=== PATIENT | female | born 1955 | race Caucasian/White ===

== ENCOUNTER 2018-07-08 02:45 | Emergency (ER) | payer BC ==
[2018-07-08 02:52] VITALS: BMI 34.7
[2018-07-08] MEDS ORDERED: ACETAMINOPHEN 500 MG TABLET (FP) ONE (02:55)
--- NOTE | 2018-07-08 02:59 | PDOC ---
History of Present Illness - General Chief Complaint: Pain, Acute Stated Complaint: HX OF ASTHMA/CHEST PAIN/HEAR TACING Time Seen by Provider: 07/08/18 02:55 History Source: Patient Exam Limitations: No Limitations - History of Present Illness Initial Comments: 07/08/18 02:55 This is a 62-year-old female comes in complaining of pleuritic-type chest pain. Patient says is worse when she takes deep breath worse when she moved and worse when she palpates the area. Patient had history of similar. Past she's related to her coughing and her asthma. Patient has a history of hypertension but does not take any medication for it is noted to have hypertension here in the emergency room. patient is somewhat obese but otherwise healthy. PAST MEDICAL HISTORY: no significant history PAST SURGICAL HISTORY: no significant history FAMILY HISTORY: no pertinant history SOCIAL HISTORY: Pt lives with family and is employed. MEDICATIONS: reviewed ALLERGIES: As per nursing notes ROS General: No fevers or chills, no weakness, no weight loss HEENT: No change in vision. No sore throat,. No ear pain CardioVascular: + chest pain , no shortness of breath Respiratory:No cough, or wheezing. Gastrointestinal: no nausea, vomiting, diarrhea or constipation, No rectal bleeding Genitourinary: No dysuria, hematuria, or frequency Musculoskeletal: . No joint pain or swelling Neurologic: No headache, vertigo, dizziness or loss of consciousness Psychiatric: nor depression Skin: No rashes or easy bruising Endocrine: no increased thirst or abnormal weight change Allergic: no skin or latex allergy All other systems reviewed and normal Exam: General: Well-nourished well-developed individual, no acute distress HEENT: Throat: Normal, tonsils normal, no erythema or exudate Neck: Supple, no meningeal signs, no lymphadenopathy Eyes::Pupils equal reactive and round, extraocular motion intact Chest: Pain reproduced on palpation Cardiac: S1-S2 normal, regular rate and rhythm, no murmurs rubs or gallops Respiratory: Lungs clear to auscultation bilateral Abdomen: Soft, nondistended, normal bowel sounds, there is no tenderness on palpation diffusely Extremities: Warm, dry, no cyanosis, clubbing, or edema Skin: No rashes Neuro: Alert and oriented x3, CN II - XII intact, nonfocal exam with normal strength, normal sensation, normal reflexes, normal gait, Psych: Normal mood and affect Assessment and plan: This is a 63y/o female with pleuritic chest pain. Pt had an ECG that was negative for any acute pathology. Pt troponin was not measurable, Pt heart score was 2. Pt discharged home and told to follow up with her PMD. Pt given tylenol for the pain with some improvement. Past History - Past Medical History Allergies/Adverse Reactions: Allergies Allergy/AdvReac Type Severity Reaction Status Date / Time codeine [Codeine] Allergy Severe Difficulty Verified 07/08/18 02:47 Breathing oxycodone [Oxycodone] Allergy Severe ANAPHYLAXIS Verified 07/08/18 02:47 strawberry [[place]] Allergy Unknown Verified 07/08/18 02:47 tomato [Tomato] Allergy Unknown Verified 07/08/18 02:47 pineapple Allergy Verified 07/08/18 02:47 Sulfa (Sulfonamide Allergy Hives Verified 07/08/18 02:47 Antibiotics) Home Medications: Ambulatory Orders Albuterol Sulfate Inhaler - [Ventolin Hfa Inhaler -] 2 inh PO Q6H 07/08/18 Anemia: No Asthma: Yes Cancer: No Cardiac Disorders: No CVA: No COPD: No CHF: No Dementia: No Diabetes: No GI Disorders: No Disorders: No HTN: Yes (TAKES NO MEDICATION) Hypercholesterolemia: No Liver Disease: No Seizures: No Thyroid Disease: No - Surgical History Abdominal Surgery: Yes (HEMORRHOIDECTOMY,Bilateral Laparoscopic Oopherectomy) Appendectomy: No Cardiac Surgery: No Cholecystectomy: No Lung Surgery: No Neurologic Surgery: No Orthopedic Surgery: Yes (FX RIGHT ANKLE PINNED) - Immunization History Immunization Up to Date: Yes - Suicide/Smoking/Psychosocial Hx Smoking Status: No Smoking History: Former smoker Years of Tobacco Use: 2 Have you smoked in the past 12 months: No Number of Cigarettes Smoked Daily: 0 If you are a former smoker, when did you quit?: 1988 Cigars Per Day: 0 Information on smoking cessation initiated: No Hx Alcohol Use: No Drug/Substance Use Hx: No Substance Use Type: Alcohol Hx Substance Use Treatment: No *Physical Exam - Vital Signs Last Vital Signs Temp Pulse Resp BP Pulse Ox 83 18 192/97 100 07/08/18 02:49 07/08/18 02:49 07/08/18 02:49 07/08/18 02:49 Heart Score/ECG Review - History History: Slightly suspicious - Electrocardiogram EKG: Normal - Age Age: 45-65 - Risk Factors Risk Factors Heart Score: Yes Hx Hypertension, Yes Hx Obesity Based on the list above the patient has:: 1-2 risk factors - Troponin Troponin: </= normal limit - Score Heart Score - Total: 2 *DC/Admit/Observation/Transfer Diagnosis at time of Disposition: Chest pain, pleuritic - Discharge Dispostion Disposition: HOME Condition at time of disposition: Stable Decision to Admit order: No - Referrals Referrals: oRlanda Singleton MD [Primary Care Provider] - - Patient Instructions Additional Instructions: Tylenol or Motrin as needed for pain Return to the emergency department immediately with ANY new, persistent or worsening symptoms. Continue any medications as previously prescribed by your physician. You should follow up with your primary doctor as soon as possible regarding today's emergency department visit. . Please make sure your doctor reviews the results of your emergency evaluation. Thank you for coming to the Emergency Department today for your care. It was a pleasure to see you today. Please note that your evaluation is INCOMPLETE until you follow-up with your doctor. - Post Discharge Activity
[2018-07-08] MEDS ORDERED: ACETAMINOPHEN 500 MG TABLET (FP) PO ONE (03:01)
[2018-07-08 03:29] VITALS: BP 124/74; PULSE 76
--- NOTE | 2018-07-08 11:19 | EKG ---
Test Reason : Blood Pressure : / mmHG Vent. Rate : 080 BPM Atrial Rate : 080 BPM P-R Int : 148 ms QRS Dur : 096 ms QT Int : 382 ms P-R-T Axes : 049 005 053 degrees QTc Int : 440 ms NORMAL SINUS RHYTHM INCOMPLETE RIGHT BUNDLE BRANCH BLOCK BORDERLINE ECG NO PREVIOUS ECGS AVAILABLE Confirmed by JOON AARON, STEFANI ([id number]) on 07/08/2018 11:19:00 AM Referred By: MD MURPHY Confirmed By:STEFANI DUPREE MD
== END 2018-07-08 03:58 | disposition home or self-care (01) ==
LOC: FER 02:45
DX: R07.89 Other chest pain (principal); I10 Essential (primary) hypertension; E66.9 Obesity, unspecified; Z87.891 Personal history of nicotine dependence
CPT/HCPCS: 36415; 82550; 84484; 93005; 99281-25

== ENCOUNTER 2019-06-04 19:24 | Emergency (ER) | payer BC ==
[2019-06-04 19:37] VITALS: BP 124/75; PULSE 83; TEMP 98.3; BMI 34.7
[2019-06-04] MEDS ORDERED: ACETAMINOPHEN 1000 MG/100 ML VIAL (NON FORMULARY) IVPB ONE (20:18)
[2019-06-04] MEDS ORDERED: ACETAMINOPHEN INJECTION 100 ML IVPB ONE (20:22)
[2019-06-04 20:55] LABS: BASO % 1.3 % (0-2.0); EOS % 0.4 % (0-4.5); HEMATOCRIT 41.7 % (32.4-45.2); HEMOGLOBIN 14.1 GM/dl (10.7-15.3); LYMPH % 16.6 % (8-40); MCH 33.4 pg (25.7-33.7); MCHC 33.9 g/dl (32.0-36.0); MEAN CELL VOLUME 98.6 fl (80-96); MEAN PLT VOLUME 8.9 fl (7.5-11.1); MONO % 4.5 % (3.8-10.2); NEUT % 77.2 % (42.8-82.8); PLATELET COUNT 330 K/MM3 (134-434); RBC 4.23 M/mm3 (3.60-5.2); RDW 12.5 % (11.6-15.6); WHITE BLOOD COUNT 11.7 K/mm3 (4.0-10.8)
[2019-06-04 21:02] LABS: INR 1.11 (0.82-1.09); PROTHROMBIN TIME (PATIENT) 12.4 SEC (10.2-13.0)
[2019-06-04 21:07] LABS: ALBUMIN 4.1 g/dl (3.4-5.0); BILIRUBIN,TOTAL 0.7 mg/dl (0.2-1); CALCIUM 9.1 mg/dl (8.5-10); CREATININE 0.8 mg/dl (0.55-1.3); POTASSIUM 4.1 mmol/L (3.5-5.1)
[2019-06-04] MEDS ORDERED: KETOROLAC TROMETHAMINE 30 MG/1 ML VIAL IVPUSH ONE (22:06)
[2019-06-04] MEDS ORDERED: KETOROLAC TROMETHAMINE 30 MG/1 ML VIAL ONE (22:07)
[2019-06-04] MEDS ORDERED: SODIUM CHLORIDE 1,000 ML IV STA (22:08)
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
--- NOTE | 2019-06-05 13:58 | EKG ---
Test Reason : Blood Pressure : / mmHG Vent. Rate : 079 BPM Atrial Rate : 079 BPM P-R Int : 134 ms QRS Dur : 088 ms QT Int : 374 ms P-R-T Axes : 047 006 053 degrees QTc Int : 428 ms NORMAL SINUS RHYTHM NORMAL ECG WHEN COMPARED WITH ECG OF 08-JUL-2018 02:52, NO SIGNIFICANT CHANGE WAS FOUND Confirmed by LEIA IRIZARRY MD ([id number]) on 06/05/2019 1:58:11 PM Referred By: MD YANEZ Confirmed By:LEIA IRIZARRY MD
== END 2019-06-05 01:26 | disposition home or self-care (01) ==
LOC: FER 19:24
PROC: 3E033NZ Introduction of Analgesics, Hypnotics, Sedatives into Peripheral Vein, Percutaneous Approach (ICD-10-PCS; principal; 2019-06-04)
PROC: 3E0337Z Introduction of Electrolytic and Water Balance Substance into Peripheral Vein, Percutaneous Approach (ICD-10-PCS; 2019-06-04)
DX: R07.89 Other chest pain (principal); E78.00 Pure hypercholesterolemia, unspecified; Z87.891 Personal history of nicotine dependence; I10 Essential (primary) hypertension; J45.909 Unspecified asthma, uncomplicated; F99 Mental disorder, not otherwise specified
CPT/HCPCS: 36415; 71045-TC-FY; 71275-TC; 80053; 82550; 84484; 85025; 85379; 85610; 93005; 99283-25; J0131; J7030

== ENCOUNTER 2019-12-25 07:41 | Emergency (ER) | payer OTHER, BC ==
--- NOTE | 2019-12-25 07:51 | PDOC ---
History of Present Illness - General Chief Complaint: Injury Stated Complaint: FELL WHILE WALKING DOG LANDED ON BUTTOCKS Time Seen by Provider: 12/25/19 07:47 History Source: Patient Exam Limitations: No Limitations - History of Present Illness Initial Comments: 12/25/19 07:49 64y F hx of slipped disk, asthma, depression, presents sp fall. Pt was walking her dog, and was pulled off balance by her dog and fell on her R buttock. Patient complains of a back pain that radiates up her spine without associated numbness/tingling/weaknsss, groin tingling/numbness, urianry or bowel incontinence. Therew as no head injury for LOC. Pt dneies pain elsewhere. Pt notse the pain today is a bit lower than hwere she has her typical back pain. exam: GENERAL: The patient is awake, alert, and fully oriented, Nontoxic - in no acute distress. HEAD: Normocephalic, atraumatic. BACK: Moderate tenderness in the midline approximately L3-L4, There is no crepitus, step-offs, ecchymosis, erythema, fluctuance, induration. EXTREMITIES: Normal range of motion, no edema. Normal range of motion including hip flex/exteions, knee flex/ext. Sensation intact distally Suspect possible back spasms versus fracture Will obtain lumbar spine x-ray will give the patient Toradol Tylenol Flexeril There is no signs of neurologic involvement including any red flags Past History - Past Medical History Allergies/Adverse Reactions: Allergies Allergy/AdvReac Type Severity Reaction Status Date / Time codeine [Codeine] Allergy Severe Difficulty Verified 12/25/19 07:43 Breathing oxycodone [Oxycodone] Allergy Severe ANAPHYLAXIS Verified 12/25/19 07:43 Sulfa (Sulfonamide Allergy Intermediate Hives Verified 12/25/19 07:43 Antibiotics) strawberry [[place]] Allergy Unknown Verified 12/25/19 07:43 tomato [Tomato] Allergy Unknown Verified 12/25/19 07:43 pineapple Allergy Verified 12/25/19 07:43 Home Medications: Ambulatory Orders Albuterol Sulfate Inhaler - [Ventolin Hfa Inhaler -] 2 inh PO Q6H PRN 07/08/18 Bupropion HCl [Wellbutrin Xl] 450 mg PO DAILY 06/04/19 Cholecalciferol (Vitamin D3) [Vitamin D3] 1,000 unit PO DAILY 06/04/19 Glucosam/Chond/Hyalu/Cf Borate [Move Free Joint Health Tablet] 1 each PO DAILY 06/04/19 Montelukast Sodium [Singulair] 10 mg PO HS 06/04/19 Multivitamin [One-Daily Multi-Vitamin] 1 each PO DAILY 06/04/19 Cyclobenzaprine HCl [Flexeril 10 mg] 10 mg PO BID PRN #14 tablet 12/25/19 Morphine Sulfate [Morphine Sulfate ER] 10 mg PO DAILY PRN #5 cap.er.pel MDD 1 Anemia: No Asthma: Yes Cancer: No Cardiac Disorders: No CVA: No COPD: No CHF: No Dementia: No Diabetes: No GI Disorders: No Disorders: Yes (FIBROIDS/POLYPS) HTN: Yes Hypercholesterolemia: Yes Liver Disease: No Psychiatric Problems: Yes Seizures: No Thyroid Disease: No - Surgical History Abdominal Surgery: Yes (HEMORRHOIDECTOMY,Bilateral Laparoscopic Oopherectomy) Appendectomy: No Cardiac Surgery: No Cholecystectomy: No Lung Surgery: No Neurologic Surgery: No Orthopedic Surgery: Yes (FX RIGHT ANKLE PINNED) - Immunization History Immunization Up to Date: Yes - Psycho Social/Smoking Cessation Hx Smoking Status: No Smoking History: Former smoker Years of Tobacco Use: 2 Have you smoked in the past 12 months: No Number of Cigarettes Smoked Daily: 0 If you are a former smoker, when did you quit?: 1988 Cigars Per Day: 0 Hx Alcohol Use: No Drug/Substance Use Hx: No Substance Use Type: Alcohol Hx Substance Use Treatment: No Medical Decision Making - Medical Decision Making 12/25/19 09:29 pt xray results reviewed, old thoracic compression fx (known to pt), and spinolytehsis of L5/S1 noted but no fx. pt feeling improved, anticipate dc with pmd/ortho fu return precuations were discussed Discharge - Discharge Information Problems reviewed: Yes Clinical Impression/Diagnosis: Lower back pain Qualifiers: Chronicity: acute Back pain laterality: midline Sciatica presence: without sciatica Qualified Code(s): M54.5 - Low back pain Spondylisthesis Qualifiers: Spinal region: lumbosacral Qualified Code(s): M43.17 - Spondylolisthesis, lumbosacral region Condition: Improved Disposition: HOME - Admission No - Additional Discharge Information Prescriptions: Cyclobenzaprine HCl [Flexeril 10 mg] 10 mg PO BID PRN #14 tablet PRN Reason: Back Pain Morphine Sulfate [Morphine Sulfate ER] 10 mg PO DAILY PRN #5 cap.er.pel MDD 1 PRN Reason: Pain - Follow up/Referral Referrals: Juan M Mccollum MD [Staff Physician] - - Patient Discharge Instructions Patient Printed Discharge Instructions: DI for Low Back Pain Additional Instructions: Return to the emergency department immediately with ANY new, persistent or worsening symptoms including numbness, tingling, weakness, fevers or any other concerns. Take ibuprofen (400mg)/tylenol(650mg) every 6 hours for 2 days. Take the flexeril twice daily if you still have pain/discomfort. Caution in using flexeril as it may make you sleepy. Do not drive or put yourself in any position where you would be in danger. If you have pain with the above medications you can take the morphine as needed however it may make you very drowsy Apply heat to your sore muscles. You MUST call and follow up with your doctor in 3-4 days for further evaluation of your symptoms. Your emergency department visit is not complete without a followup with your doctor for reevaluation.. Results were discussed with you. Please make sure your doctor reviews the results of your emergency evaluation. - Post Discharge Activity
[2019-12-25] MEDS ORDERED: KETOROLAC TROMETHAMINE 60 MG/2 ML VIAL IM ONE (07:52)
[2019-12-25] MEDS ORDERED: ACETAMINOPHEN 325 MG TABLET (FP) PO ONE (07:52)
[2019-12-25 07:56] VITALS: BP 156/93; PULSE 73; TEMP 97.8; BMI 33.3
[2019-12-25] MEDS ORDERED: CYCLOBENZAPRINE HCL 10 MG TABLET (FP) PO ONE (07:59)
[2019-12-25] MEDS ORDERED: ACETAMINOPHEN 325 MG TABLET (FP) ONE (08:11)
[2019-12-25] MEDS ORDERED: KETOROLAC TROMETHAMINE 60 MG/2 ML VIAL ONE (08:11)
[2019-12-25] MEDS ORDERED: CYCLOBENZAPRINE HCL 10 MG TABLET (FP) ONE (08:12)
== END 2019-12-25 10:19 | disposition home or self-care (01) ==
LOC: FER 07:41
PROC: 3E0233Z Introduction of Anti-inflammatory into Muscle, Percutaneous Approach (ICD-10-PCS; principal; 2019-12-25)
DX: M43.17 Spondylolisthesis, lumbosacral region (principal); Z88.6 Allergy status to analgesic agent; Z88.2 Allergy status to sulfonamides; Z87.891 Personal history of nicotine dependence; J45.909 Unspecified asthma, uncomplicated; I10 Essential (primary) hypertension; E78.00 Pure hypercholesterolemia, unspecified; F99 Mental disorder, not otherwise specified; D21.9 Benign neoplasm of connective and other soft tissue, unspecified
CPT/HCPCS: 72100-TC-FY; 96372; 99284-25

== ENCOUNTER 2021-12-01 21:45 | Emergency (ER) | payer OTHER, BC | END 2021-12-01 23:30 | disposition home or self-care (01) | LOC: FER 21:45 | DX: S22.32XA Fracture of one rib, left side, initial encounter for closed fracture (principal); S59.901A Unspecified injury of right elbow, initial encounter; S60.222A Contusion of left hand, initial encounter; W19.XXXA Unspecified fall, initial encounter; Y92.9 Unspecified place or not applicable | CPT/HCPCS: 71101-TC-LT-FY; 73070-TC-RT-FY; 73130-TC-LT-FY; 99283-25 ==

== ENCOUNTER 2023-04-04 10:03 | Day surgery (SDC) | payer OTHER, BC ==
[2023-04-02 12:35] VITALS: BMI 30.9
[2023-04-04] MEDS: PHENYLEPHRINE 2.5% OPTHALMIC DROP 2ML BOTTLE ONE ×3 (10:55→11:10)
[2023-04-04] MEDS: CYCLOPENTOLATE 2% OPHTH SOLN 2 ML BOTTLE ONE ×3 (10:55→11:10)
[2023-04-04] MEDS: TROPICAMIDE 1% OPHTH SOLN 15 ML BOTTLE ONE ×3 (10:55→11:10)
[2023-04-04] MEDS: CIPROFLOXACIN 0.3% EYE DROPS 5 ML BOTTLE ONE ×3 (10:55→11:10)
[2023-04-04 11:03] VITALS: RESP 18
[2023-04-04] MEDS ORDERED: NEO/POLYMYX B SULF/DEXAMETH OPHTHALMIC 5ML BOTTLE ONE (11:52)
[2023-04-04] MEDS ORDERED: BSS (NA/CA/MG/K) BALANCED SALT SOLUTION OPHTH SOLN 15 ML BOTTLE ONE (11:52)
[2023-04-04] MEDS ORDERED: CARBACHOL 0.01% INTRA-OCULAR 1.5 ML VIAL ONE (11:52)
[2023-04-04] MEDS ORDERED: MIDAZOLAM HCL 2 MG/2 ML SINGLE DOSE VIAL ONE (12:24)
[2023-04-04 13:01] VITALS: TEMP 97.8
[2023-04-04 13:23] VITALS: BP 139/71; PULSE 66
== END 2023-04-04 13:24 | disposition home or self-care (01) ==
LOC: FASU 10:03
PROVIDERS: ATTEND Ophthalmology
PROC: 08RK3JZ Replacement of Left Lens with Synthetic Substitute, Percutaneous Approach (ICD-10-PCS; principal; 2023-04-04 12:35)
DX: H26.8 Other specified cataract (principal)
CPT/HCPCS: 66984; V2632

== ENCOUNTER 2023-04-25 11:21 | Day surgery (SDC) | payer OTHER, BC ==
[2023-04-19 16:50] VITALS: BMI 30.9
[2023-04-25] MEDS ORDERED: MIDAZOLAM HCL 2 MG/2 ML SINGLE DOSE VIAL ONE (11:45)
[2023-04-25] MEDS: PHENYLEPHRINE 2.5% OPTHALMIC DROP 2ML BOTTLE ONE ×3 (12:15→12:25)
[2023-04-25] MEDS: CYCLOPENTOLATE 2% OPHTH SOLN 2 ML BOTTLE ONE ×3 (12:15→12:25)
[2023-04-25] MEDS: TROPICAMIDE 1% OPHTH SOLN 15 ML BOTTLE ONE ×3 (12:15→12:25)
[2023-04-25] MEDS: CIPROFLOXACIN 0.3% EYE DROPS 5 ML BOTTLE ONE ×3 (12:15→12:25)
[2023-04-25] MEDS ORDERED: BSS (NA/CA/MG/K) BALANCED SALT SOLUTION OPHTH SOLN 15 ML BOTTLE ONE (12:19)
[2023-04-25] MEDS ORDERED: LIDOCAINE 1% P/F 10 MG/ML VIAL ONE (12:19)
[2023-04-25] MEDS ORDERED: CARBACHOL 0.01% INTRA-OCULAR 1.5 ML VIAL ONE (12:19)
[2023-04-25] MEDS ORDERED: NEO/POLYMYX B SULF/DEXAMETH OPHTHALMIC 5ML BOTTLE ONE (12:19)
[2023-04-25] MEDS ORDERED: TETRACAINE 0.5% OPHTH SOLN 2 ML BOTTLE ONE (12:19)
[2023-04-25 14:53] VITALS: RESP 18
[2023-04-25 14:55] VITALS: BP 131/79; PULSE 66; TEMP 97.5
== END 2023-04-25 14:15 | disposition home or self-care (01) ==
LOC: FASU 11:21
PROVIDERS: ATTEND Ophthalmology
PROC: 08RJ3JZ Replacement of Right Lens with Synthetic Substitute, Percutaneous Approach (ICD-10-PCS; principal; 2023-04-25 13:11)
DX: H26.8 Other specified cataract (principal)
CPT/HCPCS: 66984; V2632

== ENCOUNTER 2023-06-15 13:35 | Emergency (ER) | payer OTHER, BC ==
[2023-06-15 13:42] VITALS: BP 148/89; PULSE 84; RESP 16; TEMP 98.3; BMI 30.9
[2023-06-15] MEDS ORDERED: IBUPROFEN 400 MG TABLET (FP) PO ONE ×2 (13:49→14:46)
[2023-06-15] MEDS ORDERED: TETANUS AND DIPHTHERIA TOXOID 0.5 ML DISP.SYRIN IM ONE (15:22)
[2023-06-15] MEDS ORDERED: DIPHTH,PERTUSS(ACELL),TET 0.5 ML DISP.SYRIN IM ONE (15:29)
[2023-06-15] MEDS ORDERED: CEPHALEXIN MONOHYDRATE 500 MG CAPSULE (UD) PO ONE (18:22)
[2023-06-15] MEDS ORDERED: CEPHALEXIN MONOHYDRATE 500 MG CAPSULE (UD) ONE (18:36)
== END 2023-06-15 19:05 | disposition home or self-care (01) ==
LOC: FER 13:35
PROC: 2W3JX1Z Immobilization of Right Finger using Splint (ICD-10-PCS; principal; 2023-06-15)
PROC: 3E0234Z Introduction of Serum, Toxoid and Vaccine into Muscle, Percutaneous Approach (ICD-10-PCS; 2023-06-15)
DX: S62.630B Displaced fracture of distal phalanx of right index finger, initial encounter for open fracture (principal); W23.0XXA Caught, crushed, jammed, or pinched between moving objects, initial encounter
CPT/HCPCS: 29130; 73130-TC-RT-FY; 90471; 90715; 99283-25; G0463

== ENCOUNTER 2023-09-06 07:24 | Day surgery (SDC) | payer OTHER, BC ==
[2023-09-03 15:42] VITALS: BMI 31.6
[2023-09-06 07:58] VITALS: RESP 20
[2023-09-06 09:30] VITALS: TEMP 97.2
[2023-09-06 09:37] VITALS: BP 112/73; PULSE 62
== END 2023-09-06 09:49 | disposition home or self-care (01) ==
LOC: FASU-ENDO 07:24
PROVIDERS: ATTEND Internal Medicine Gastroenterology
PROC: 0DJD8ZZ Inspection of Lower Intestinal Tract, Via Natural or Artificial Opening Endoscopic (ICD-10-PCS; principal; 2023-09-06 08:32)
DX: Z12.11 Encounter for screening for malignant neoplasm of colon (principal); K64.4 Residual hemorrhoidal skin tags; Z80.0 Family history of malignant neoplasm of digestive organs; Z83.719 Family history of colon polyps, unspecified